=== PATIENT | female | born 1985 | race Caucasian/White ===

== ENCOUNTER → 2018-11-14 16:12 | Outpatient (CLI) | payer SELFPAY ==
[2018-11-14 19:50] LABS: Chlamydia Trachomatis by PCR Negative (Negative); Neisserai gonorrhoeae by PCR Negative (Negative); Probe Check PASS; Sample Adequacy Control PASS; Specimen Processing Control PASS
[2018-11-17 13:13] LABS: HPV Reflexed? NOT INDICATED
== END ==
LOC: LABSPEC 16:15
PROVIDERS: Visit Provider Obstetrics & Gynecology
DX: Z12.4 Encounter for screening for malignant neoplasm of cervix (principal); Z11.3 Encounter for screening for infections with a predominantly sexual mode of transmission
CPT/HCPCS: 87491; 87591; 88175; G0145

== ENCOUNTER 2018-12-15 10:13 | Day surgery (SDC) | payer SELFPAY ==
--- NOTE | 2018-12-13 12:45 | PCM.HPOB.BLA ---
History and Physical Date of Admission: 12/15/18 BETH ROTH Age: 33 Date of : 1985 HISTORY OF PRESENT ILLNESS: Beth Roth, a 33 year old female 2 1 0 0 0 1, presented for NOB visit but u/s showed a blighted ovum. As above. Sono shows no pole, no cardiac motion and likely blighted ovum. Advised of findings. Recommended suction D and C as bleeding is likely to be heavy with cramping and variable onset, unpredictable when SAB will complete. She was uncertain how she would like to proceed but after considering her options overnight called in to schedule a suction D and C. EB SONO 12/13/18 : BLIGHTED OVUM Empty irregular GS seen. No yolk sac or pole seen. retroverted uterus and GS measures 8 weeks 4 days. @ EGA of 14 weeks 1 day EB ALLERGIES: No Known Drug Allergies MEDICATIONS HISTORY: None. REVIEW OF SYSTEMS: GENERAL - tired SKIN - Denies skin changes EYES - Denies visual changes EARS - Denies difficulty hearing NOSE - Denies nasal congestion or bleeding MOUTH - Denies sore throat or difficulty swallowing NECK - Denies pain or swelling RESPIRATORY - Denies shortness of breath or wheezing CARDIOVASCULAR - Denies palpitations or chest pain GASTROINTESTINAL - nausea GENITOURINARY - Denies dysuria, frequency of urination, incontinence of urine MUSCULOSKELETAL - Denies joint or muscle pain NEUROLOGICAL - Denies localized numbness or weakness PSYCHIATRIC - Denies depression or anxiety ENDOCRINE - Denies heat or cold intolerance, weight loss or gain HEMATO-IMMUNOLOGIC - Denies excessive bleeding with cuts PAST HISTORY: Breast/Ovarian/Colon Cancers - Denies Infections - Chicken pox Illnesses - none Accidents - no injuries of consequence History of Abnormal PAPS - Denies Hospitalizations - Childbirth SURGICAL HISTORY: 1. 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[employer] Illicit Drug Use - denies use of street drugs Sexual Activity - Spouse-Sig Other Name - Tonny Spouse-Sig 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 No cardiac motion. Blighted ovum ASSESSMENT: 1. Blighted Ovum And Nonhydatidiform Mole PLAN BY DIAGNOSIS: 1. Blighted Ovum And Nonhydatidiform Mole Reviewed sono findings Advised re background risk for SAB and advised that nothing she did to cause this Discussed options for treatment: expectant management, medication to induce SAB, or suction D and C. Advised bleeding may be very heavy and that pain may be more intense if elects to pass this on her own. Even if she elects medication to induce the SAB, the medication will normally caused increased pain and bleeding. ACOG brochure given to read and consider further : Early Loss (including information on molar and SAB) After considering all options, elects to proceed with suction D and C. Will schedule this for her. RTO in 2 wk for postop follow up appt.
[2018-12-15] VITALS (8 sets, daily range): BP systolic 95–105; BP diastolic 62–73; PULSE 75–82; RESP 16–18; TEMP 36.9; O2SAT 99–100; BMI 21.2
--- NOTE | 2018-12-15 11:59 | PCM.DC.D&C ---
Discharge Diet: No Restrictions Discharge Activity: May not drive while taking narcotic pain medications., May Shower, May Take a Tub Bath May resume sexual activity in: 1-2 weeks - when comfortable Call your doctor if you observe: Fever of 101 or Higher, Using more than one pad per hour, Uncontrolled pain Additional Instructions: You may take Aleve or ibuprofen as needed for milder pain. Add Tylenol #3 if pain is more severe. Allergies/Adverse Reactions: Allergies No Known Allergies Allergy (Verified 12/14/18 11:14) Medications to take at Discharge Acetaminophen/Codeine #3 [Tylenol#3] 1 tablet PO Q6H PRN PRN #5 tablet 12/15/18 The following prescriptions were given: Acetaminophen/Codeine #3 [Tylenol#3] 1 tablet PO Q6H PRN PRN #5 tablet PRN Reason: Mod-Severe Pain (4-10) Primary Care Physician: Care Physician,No Primary [Primary Care Provider] - Test Results: Test results from this visit will be discussed in further detail at your follow-up appointment, if applicable. Please Follow Up With: Elvia Fallon MD - [phone] When: two weeks for postop follow up appt. Proposed Discharge Date: 12/15/18
--- NOTE | 2018-12-15 12:00 | POC_PTH ---
PATIENT: BETH ROSENBERG LOC: [facility] [place] U#:[id number] AGE/SX: 33/F ROOM: RE12/15/[address]: Dr. Elvia Fallon MD : 1985 BED: DIS: 12/15/2018 SPEC #: [id number] RECD: 12/15/18 12:55 STATUS: KIERAN REEryn #: [id number] MARCELLO: 12/15/18 12:[address]: Elvia Fallon DEPT: SURGICAL PATHOLOGY RECD BY: Garry Patel ENTERED: 12/15/18 13:21 SP TYPE: PROD CONC OTHR DR: No Primary Care Phys Tissues: Product of conception, NOS Procedures: Surgery Specimen Level IV HEADER OPERATION: Dilation and curettage, suction PRE-OP DIAGNOSIS: Blighted ovum and non-hydatidiform mole TISSUE SUBMITTED: Products of conception MICROSCOPIC DIAGNOSIS Endometrium, curettage: Chorionic villi with hydropic change. Decidualized stroma and trophoblastic cells. AM:delicia 12/18/18 COMMENT Clinical correlation is suggested. Case has been reviewed in consultation with Dr. Nguyen who concurs with the above diagnosis. IDC:SJ MICROSCOPIC DESCRIPTION Slides are reviewed. GROSS DESCRIPTION Received in fixative is one container labeled with the patient's name and designated products of conception. The specimen consists of multiple irregular fragments of pink-watson soft tissue that in aggregate measure 10.5 x 8 x 2 cm. parts are not grossly recognized. Pattern Chain Maker Supervisor portions are submitted in five cassettes. / AM:delicia 12/15/18 TC:5 CPT: 70144
--- NOTE | 2018-12-15 12:03 | DCINST_ITS ---
Discharge Diet: No Restrictions Discharge Activity: May not drive while taking narcotic pain medications., May Shower, May Take a Tub Bath May resume sexual activity in: 1-2 weeks - when comfortable Call your doctor if you observe: Fever of 101 or Higher, Using more than one pad per hour, Uncontrolled pain Additional Instructions: You may take Aleve or ibuprofen as needed for milder pain. Add Tylenol #3 if pain is more severe. Allergies/Adverse Reactions: Allergies No Known Allergies Allergy (Verified 12/14/18 11:14) Medications to take at Discharge Acetaminophen/Codeine #3 [Tylenol#3] 1 tablet PO Q6H PRN PRN #5 tablet 12/15/18 The following prescriptions were given: Acetaminophen/Codeine #3 [Tylenol#3] 1 tablet PO Q6H PRN PRN #5 tablet PRN Reason: Mod-Severe Pain (4-10) Primary Care Physician: Care Physician,No Primary [Primary Care Provider] - Test Results: Test results from this visit will be discussed in further detail at your follow- up appointment, if applicable. Please Follow Up With: Elvia Fallon MD - [phone] When: two weeks for postop follow up appt. Proposed Discharge Date: 12/15/18
--- NOTE | 2018-12-15 12:09 | PCM.OPRPT ---
Report of Operation Date of Procedure: 12/15/18 Pre-Operative Diagnosis: blighted ovum, missed Post-Operative Diagnosis: same Surgery/Procedure Performed:: Suction D and C Type of Anesthesia:: Local MAC Anesthesiologist: Ignacio Porter Specimen's removed: uterine curettings and products of conception Drains: red krause prior to start of case Fluids Replaced: LR Description of Procedure: Narrative Account: After the risks, benefits, alteratives of the procedure were reviewed with the patient informed consent was obtained. The patient was taken to the OR with an IV running and placed in dorsal supine position on the operating table. She was given MAC IV sedation, and then repositioned to the dorsal lithotomy position and was prepped and draped in the usual sterile fashion. The bladder was drained with a red Krause catheter. A Graves speculum was placed, the cervix identified and the anterior lip grasped with a single toothed tenaculum. The cervix was then easily dilated to allow admission of a 7 mm curved suction curette tip. The suction curette was then placed to the uterine fundus, suction applied, and POC were obtained. After most of the products of conception were removed a sharp curettage was performed and good Crei was noted in all quadrants of the uterus. One final pass was conducted with the suction curette and the remaining products of conception and uterine curettings were removed. The single toothed tenaculum was removed from the anterior lip of the cervix. A sponge stick was then used to remove any remaining tissue and blood from the upper vagina and cervix . All instruments were then removed from the vagina and cervix. Excellent hemostasis was noted. The patient was awakened from IV sedation and then transferred to the recovery room bed in stable condition after tolerating the procedure well. Sponge , instrument, and needle counts were correct x two. Medications given intraoperatively included: 10 cc of 1% lidocaine without epinephrine, Toradol 30 mg IV x one. For a complete listing of medications given intraoperatively, please see the anesthesia record. - Complications none - Admit VTE Documentation VTE Present on Admission: No VTE Mechan Device Prophylaxis: SCD's
== END 2018-12-15 13:57 | disposition home or self-care (01) ==
LOC: SDC 10:14 → AC 10:23
PROVIDERS: Referring Provider Obstetrics & Gynecology; Visit Provider Obstetrics & Gynecology
PROC: (CPT 59820; principal; 2018-12-15 11:45)
DX: O02.0 Blighted ovum and nonhydatidiform mole (principal); Z3A.14 14 weeks gestation of pregnancy
CPT/HCPCS: 59820; 86850; 86900; 88305; J7120